=== PATIENT | female | born 1980 | race African-American/Black ===

== ENCOUNTER 2017-02-17 00:17 | Emergency (ER) | payer OTHER ==
[~2017-02-17] VITALS: Ht 167.6 cm; Wt 68.2 kg
[~2017-02-17 00:17] MED LIST: ACET-2047 PO; ACET325T45 GTB; AMIN30LI5 PO; DEXT37.54 PO; GLUC1KIT3 IM; HEP30MU30 IJ; INSU100C SC; KEP100S GTB; LACT20SO2 GTB; LEVEM SC; LEVO250T35 GTB; MAGN400O4 PO; METO-448 PO; MULT9LIQ4 GTB; MUPI22OI2 TOP; ONDA4TAB8 GTB; PEPS GTB; UDCOL GTB
[2017-02-17 00:20] VITALS: Ht 167.6 cm; Wt 68.2 kg
--- NOTE | 2017-02-17 00:25 | ERA ---
ER Documentation Chief Complaint Date/Time DATE: 02/17/17 TIME: 00:25 Chief Complaint Nonfunction G-tube HPI The patient is a 36-year-old female, presenting to the ER for replacement of the malfunctioning G-tube. She is unable to provide any history, the history is obtained from the phone technician and medical record PAST MEDICAL HISTORY: 1. Anoxic brain injury approximately 5 years ago, status post G-tube and tracheostomy. 2. Seizure disorder. 3. Chronic respiratory failure secondary to anoxic brain injury. 4. Severe Encephalopathy secondary to anoxic brain injury status post PEG tube. 5. Diabetes mellitus. 6. Hypertension. 7. Gastroesophageal reflux disease. 8. Recent Klebsiella urinary tract infection. 9. Recent episode of pneumonia. PAST SURGICAL HISTORY: 1. 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 2. Status post tracheostomy. 3. Status post PEG tube placement. ROS All systems reviewed and are negative except as per history of present illness. Medications Home Meds Active Scripts Levofloxacin* (Levaquin*) 250 Mg Tablet, 250 MG GTB DAILY for 7 Days, TAB 0 Refills Prov:PARKER SIMON MD 03/27/15 Reported Medications Dextrose (Glutose 15) 37.5 Gm Gel..gm., 5 GM PO prn Y for prn 03/24/15 Glucagon,Human Recombinant (Glucagon Emergency Kit) 1 Mg/Kit Kit, 1 MG IM prn, KIT 03/24/15 Metoprolol Tartrate* (Lopressor*) 25 Mg Tab, 25 MG PO BID, TAB 03/24/15 Insulin Detemir* (Levemir*) 100 U/Ml Vial, 12 UNIT SC HS, VIAL 03/24/15 Ondansetron Hcl* (Zofran*) 4 Mg Tablet, 4 MG GTB Q6H Y for NAUSEA AND OR VOMITING, TAB 03/10/15 Amino Acids/Protein Hydrolys (Pro-Stat Awc Liquid) 30 Ml Liquid, 30 ML PO Q12 03/10/15 Multivit &Minerals/Ferrous Fum (MULTIVITAMIN LIQUID) 9 Mg/15 Ml Liquid, 9 MG GTB DAILY 03/10/15 Magnesium Hydroxide* (Milk Of Magnesia*) 400 Mg/5 Ml Oral.susp, 30 ML PO Q6 Y for CONSTIPATION, ML 03/10/15 Lactulose* (Lactulose*) 20 Gm/30 Ml Solution, 20 GM GTB Q6H Y for CONSTIPATION, ML 03/10/15 Levetiracetam* (Keppra* (Ped)) 100 Mg/Ml Liq, 5 ML GTB BID for 30 Days, BOTTLE 03/10/15 Insulin Lispro (Humalog) 100 U/Ml Cartridge, 0 SC SLIDING SCALE AC, EA 03/10/15 Heparin Sod (Porcine) (Heparin) 1,000 Unit/Ml Soln, 5000 UNIT IJ Q8 03/10/15 Famotidine* (Pepcid* Susp) 40 Mg/5 Ml Oral.susp, 40 MG GTB HS, ML 03/10/15 Docusate Sodium* (Colace* Liq) 50 Mg/5 Ml Liquid, 100 MG GTB DAILY, EA 03/10/15 Mupirocin* (Bactroban*) 2% -22 Gram Oint...g., 1 APPLIC TOP DAILY, TUB SITE OF APPLICATION: 03/10/15 Acetaminophen* (Acetaminophen*) 650 Mg Tablet, 650 MG PO Q4H Y for PAIN, TAB 03/10/15 Acetaminophen* (Acetaminophen*) 325 Mg Tablet, 650 MG GTB Q4H Y for PAIN AND OR ELEVATED TEMP, TAB 03/10/15 Allergies Allergies: Coded Allergies: iodine (Verified Allergy, Mild, 03/24/15) PMhx/Soc History of Surgery: Yes (Dates unknown: hysterectomy, trach, gtube.) Hx Neurological Disorder: Yes (Seizure d/o secondary to anoxic brain injury.) Hx Respiratory Disorders: Yes (Trach) Hx Cardiac Disorders: Yes (HTN, tachycardia per MD) Hx Psychiatric Problems: No (Unknown, pt unable to verbalize.) Hx Miscellaneous Medical Probl: Yes (UTI) Hx Substance Use: No Physical Exam Vitals Vital Signs Date Time Temp Pulse Resp B/P Pulse Ox O2 Delivery O2 Flow Rate FiO2 02/17/17 01:33 80 20 98 02/17/17 00:20 80 20 145/92 100 Physical Exam Const: No acute distress. Head: Atraumatic. Eyes: Normal Conjunctiva. ENT: Normal External Ears, Nose and Mouth. Neck: Full range of motion. No meningismus. Resp: Clear to auscultation bilaterally. Cardio: Regular rate and rhythm, no murmurs. Abd: Soft, non distended, normal bowel sounds, positive for G-tube, nontender Skin: No petechiae or rashes. Back: No midline or flank tenderness. Ext: Contracted Neur: Unable to perform due to her condition Psych: Unable to perform due to her condition Procedures/MDM MEDICAL MAKING DECISION: The patient G-tube will replace with any difficulty and was confirmed with KUB with Gastrografin Procedure: The old G-tube was removed, the stoma was cleaned with chlorhexidine. A new G-tube was reinserted, the balloon was inflated with 8 mL of sterile water. The stopper was moved close to the skin. The procedure was done without any complication or difficulty [place] [id number] Radiology Main Line: [phone] DIAGNOSTIC IMAGING REPORT Patient: NOBLE HUSTON : 1980 Age: 36 Sex: F MR #: [id number] DOS: 02/17/17 0035 Ordering MD: GLENNY MELENDEZ MD Location: E/R Room/Bed: PROCEDURE: XR Abdomen. CLINICAL INDICATION: G tube placement. TECHNIQUE: AP abdomen x-ray. COMPARISON: 03/12/2016. FINDINGS: Plantar was injected with contrast material, which opacifies the stomach and proximal small bowel. G tube tip in the mid stomach. No evident leak. The bowel gas pattern is normal. There is no evidence of obstruction. There are no abnormal calcifications overlying the urinary tracts. The osseus structures are unremarkable. IMPRESSION: G tube tip in the mid stomach. RPTAT: [facility] Physician Shellie Date Time Electronically viewed and signed by Physician Shellie on 02/17/2017 01:23 RS/ CC: GLENNY MELENDEZ MD Departure Diagnosis: Primary Impression: Encounter for feeding tube placement Condition: Stable Comments I discussed the findings with the patient. I advised the patient to follow-up with the primary physician in about 1-2 days, sooner if needed and return if any concern. GLENNY MELENDEZ MD Feb 17, 2017 00:25
--- NOTE | 2017-02-17 01:23 | RADRPT ---
PROCEDURE: XR Abdomen. CLINICAL INDICATION: G tube placement. TECHNIQUE: AP abdomen x-ray. COMPARISON: 03/12/2016. FINDINGS: Plantar was injected with contrast material, which opacifies the stomach and proximal small bowel. G tube tip in the mid stomach. No evident leak. The bowel gas pattern is normal. There is no evidence of obstruction. There are no abnormal calcific ations overlying the urinary tracts. The osseus structures are unremarkable. IMPRESSION: G tube tip in the mid stomach. RPTAT: [facility] Physician Shellie Date Time Electronically viewed and signed by Physician Shellie on 02/17/2017 01:23 RS/
[2017-02-17 01:33] VITALS: PULSE 80; RESP 20
== END 2017-02-17 01:34 | disposition home or self-care (01) ==
LOC: E/R 00:17
DX: Z43.1 Encounter for attention to gastrostomy (principal); I10 Essential (primary) hypertension; E11.9 Type 2 diabetes mellitus without complications; Z79.4 Long term (current) use of insulin
CPT/HCPCS: 74000